=== PATIENT | female | born 1995 | race Caucasian/White ===

== ENCOUNTER 2017-03-11 13:30 | Outpatient (RCR) | payer MEDICAID ==
[2016-02-15 19:45] VITALS: BP 106/63
[~2017-03-11 13:30] MED LIST: AMOXICILLIN875 MG PO; ANAPROX DS550 MG PO; BACTRIM DS 8001 TAB PO; BUSPIRONE PO; BUSPIRONE5 MG PO; CLINDAMYCIN300 MG PO; COLACE 100100 MG/CAP PO; CORTISPORIN TC10 ML OT; LORTAB 5/500 501 TAB PO; LORTAB ELIX0.5 MG/ML PO; MACROBID 100 M100 MG PO; MACROBID 1100 MG/CAP PO; MONISTAT 7 VAG45 GM VG; PEN-VEE K250 MG PO; RT ALBUTEROL CC18 GM IH; ULTRAM50 MG PO; ZOFRAN4 M1 PO; ZYPREXA 5MG5 MG
[2017-04-23] MEDS ORDERED: VENLAFAXINE HYD75 MG PO (08:19)
[2017-04-23] MEDS ORDERED: VENLAFAXINE37.5 MG PO (08:19)
[2017-04-23] MEDS ORDERED: ZOFRAN4 M2 PO (10:44)
== END 2017-05-18 | disposition home or self-care (01) ==
LOC: PT
DX: M25.511 Pain in right shoulder (principal)

== ENCOUNTER 2017-06-22 15:10 | Outpatient (RCR) | payer MEDICAID ==
[2017-04-23 11:06] VITALS: BP 104/55
[~2017-06-22 15:10] MED LIST changes: +VENLAFAXINE HYD75 MG PO; +VENLAFAXINE37.5 MG PO; +ZOFRAN4 M2 PO
== END 2017-06-22 15:40 | disposition home or self-care (01) ==
LOC: PT 15:10
DX: S46.911D Strain of unspecified muscle, fascia and tendon at shoulder and upper arm level, right arm, subsequent encounter (principal)

== ENCOUNTER 2018-02-20 17:33 | Emergency (ER) | payer SELFPAY ==
[~2018-02-20] VITALS: Ht 149.9 cm; Wt 52.3 kg
[2018-02-20 18:35] LABS: HEMATOCRIT 40.1 % (37.0-47.0); HEMOGLOBIN 13.9 g/dL (12.5-16.0); MEAN CELL VOLUME 84 fl (78-100); MEAN CORPUSCULAR HEMOGLOBIN 29 pg (27-31); MEAN CORPUSCULAR HGB CONC 35 g/dL (33-37); MEAN PLATELET VOLUME 10.2 fl (7.4-10.4); PLATELET COUNT 201 K/mm3 (130-400); RED BLOOD COUNT 4.77 M/mm3 (4.10-5.30); RED CELL DISTRIBUTION WIDTH 12.5 % (11.5-14.5); WHITE BLOOD COUNT 17.1 K/mm3 (4.8-10.8)
[2018-02-20 18:50] LABS: BAND 5 % (0-10); LYMPHOCYTE 4 % (20-51); MONOCYTE 4 % (3-10); NEUTROPHILS 87 % (42-75)
[2018-02-20] MEDS ORDERED: AMOXICILLIN 50500 MG PO (20:26)
[2018-02-20 20:38] LABS: URINE APPEARANCE CLOUDY; URINE BILIRUBIN NEGATIVE (NEGATIVE); URINE BLOOD NEGATIVE (NEGATIVE); URINE COLOR YELLOW; URINE GLUCOSE NEGATIVE (NEGATIVE); URINE KETONE 1+ (NEGATIVE); URINE LEUKOCYTE ESTERASE 1+ (NEGATIVE); URINE NITRATE NEGATIVE (NEGATIVE); URINE PROTEIN(semi-quant) TRACE mg/dL (NEGATIVE); URINE UROBILINOGEN NORMAL (NORMAL)
[2018-02-20 20:39] LABS: URINE MUCUS PRESENT (NOT PRESENT)
[2018-02-20 20:44] VITALS: BP 100/61
== END 2018-02-20 20:44 | disposition home or self-care (01) ==
LOC: ED 17:33
PROVIDERS: Family Medicine
DX: J02.9 Acute pharyngitis, unspecified (principal); F17.200 Nicotine dependence, unspecified, uncomplicated